=== PATIENT | female | born 2000 | race Caucasian/White ===

== ENCOUNTER 2020-12-12 20:49 | Emergency (ER) | payer OTHER ==
[2020-12-12 21:24] LABS: HEMOGLOBIN 13.2 gm/dl (12.3-15.3); RED BLOOD COUNT 4.29 M/UL (4.00-5.10); WHITE BLOOD COUNT 7.5 K/UL (4.5-11.0)
[2020-12-12 21:44] LABS: BUN/CREATININE RATIO 21 (0-10)
== END 2020-12-13 03:10 | disposition short-term general hospital (02) ==
LOC: ER1 20:49
PROVIDERS: Preventive Medicine Occupational Medicine
DX: T43.011A Poisoning by tricyclic antidepressants, accidental (unintentional), initial encounter (principal); R45.851 Suicidal ideations; Z02.79 Encounter for issue of other medical certificate; F17.210 Nicotine dependence, cigarettes, uncomplicated; Z20.822 Contact with and (suspected) exposure to COVID-19
CPT/HCPCS: 36600; 71045; 80053; 80307; 81001; 82140; 82803; 83605; 83690; 84703; 85025; 87086; 93005; 99285; G0480; U0002